=== PATIENT | female | born 1945 | race Caucasian/White ===

== ENCOUNTER 2021-08-17 23:03 | Emergency (ER) | payer MEDICARE ==
[2021-08-17] MEDS ORDERED: ONDANSETRON 4MG INJ ONE (23:12)
[2021-08-17 23:58] LABS: BASOPHILS % (AUTO) 0.2 % (0.0-5.0); EOSINOPHILS % (AUTO) 0.1 % (0.0-8.0); HEMATOCRIT 41.5 % (36-48); LYMPHOCYTES % (AUTO) 6.2 % (21.0-51.0); MEAN CORPUSCULAR HEMOGLOBIN 31.5 pg (27.0-33.0); MEAN CORPUSCULAR VOLUME 95.4 fL (79-99); MONOCYTES % (AUTO) 4.5 % (3.0-13.0); NEUTROPHILS % (AUTO) 88.6 % (40.0-77.0); PLATELET COUNT (AUTO) 275 K/uL (130-400); RED BLOOD CELL COUNT(AUTO) 4.35 MIL/uL (4.00-5.50); WHITE BLOOD COUNT (AUTO) 14.1 K/uL (4.8-10.8)
[2021-08-18] MEDS ORDERED: 0.9%NACL 1000ML 1,000 ML IV ONE
[2021-08-18] MEDS ORDERED: KETOROLAC 15MG/ML VIAL (15MG/ML) IV ONE
[2021-08-18] MEDS ORDERED: MORPHINE 4 MG SYG IVP ONE
[2021-08-18 00:03] LABS: CREATININE 1.2 mg/dL (0.5-1.5); POTASSIUM 4.2 mmol/L (3.5-5.1)
[2021-08-18 00:08] LABS: ALBUMIN 3.7 g/dL (3.5-5.0); BILIRUBIN,TOTAL 0.6 mg/dL (0.2-1.0)
[2021-08-18 01:05] VITALS: BP 122/56
[2021-08-18] MEDS ORDERED: ONDA4TAB10 PO (01:41)
[2021-08-18] MEDS ORDERED: HYOS0.124 SL (01:41)
== END 2021-08-18 02:07 | disposition home or self-care (01) ==
LOC: EDH 23:03
DX: K52.9 Noninfective gastroenteritis and colitis, unspecified (principal); E86.9 Volume depletion, unspecified; I10 Essential (primary) hypertension; Z79.1 Long term (current) use of non-steroidal anti-inflammatories (NSAID); Z88.8 Allergy status to other drugs, medicaments and biological substances
CPT/HCPCS: 36415; 74176; 80053; 83690; 84484; 85025; 93005; 96361; 96374; 96375; 99285; J1885; J2270; J2405; J7030

== ENCOUNTER 2021-08-22 20:35 | Observation (INO) | payer MEDICARE ==
[~2021-08-22] VITALS: Ht 160 cm; Wt 82.6 kg
[~2021-08-22 20:35] MED LIST: HYOS0.124 SL; ONDA4TAB10 PO
[2021-08-22] MEDS ORDERED: ONDANSETRON 4MG INJ ONE (21:13)
[2021-08-22 21:26] LABS: BASOPHILS % (AUTO) 0.4 % (0.0-5.0); EOSINOPHILS % (AUTO) 0.7 % (0.0-8.0); HEMATOCRIT 43.9 % (36-48); LYMPHOCYTES % (AUTO) 11.6 % (21.0-51.0); MEAN CORPUSCULAR HEMOGLOBIN 31.5 pg (27.0-33.0); MEAN CORPUSCULAR HGB CONC 33.5 g/dL (32.0-36.0); MEAN CORPUSCULAR VOLUME 94.2 fL (79-99); MONOCYTES % (AUTO) 5.7 % (3.0-13.0); NEUTROPHILS % (AUTO) 80.9 % (40.0-77.0); PLATELET COUNT (AUTO) 277 K/uL (130-400); RED BLOOD CELL COUNT(AUTO) 4.66 MIL/uL (4.00-5.50); RED CELL DISTRIBUTION WIDTH 13.9 % (11.0-15.5); WHITE BLOOD COUNT (AUTO) 10.1 K/uL (4.8-10.8)
[2021-08-22] MEDS ORDERED: 0.9%NACL 1000ML 1,000 ML IV ONE (21:30)
[2021-08-22] MEDS ORDERED: MORPHINE 4 MG SYG IVP ONE (21:30)
[2021-08-22 21:44] LABS: CREATININE 1.1 mg/dL (0.5-1.5); POTASSIUM 3.8 mmol/L (3.5-5.1)
[2021-08-22 21:51] LABS: ALBUMIN 3.9 g/dL (3.5-5.0); BILIRUBIN,TOTAL 0.7 mg/dL (0.2-1.0); TOTAL PROTEIN, SERUM 7.4 g/dL (6.0-8.3)
[2021-08-22 22:12] LABS: APPEARANCE,URINE CLOUDY (CLEAR); BILIRUBIN,URINE NEGATIVE (NEGATIVE); COLOR,URINE YELLOW (YELLOW); GLUCOSE, URINE (UA) NEGATIVE (NEGATIVE); KETONES,URINE >=80 mg/dL (NEGATIVE); LEUKOCYTE ESTERASE ,URINE MODERATE (NEGATIVE); NITRATE,URINE NEGATIVE (NEGATIVE); OCCULT BLOOD,URINE LARGE (NEGATIVE); PH,URINE 5.5 (5.0-8.0); PROTEIN,URINE TRACE mg/dL (NEGATIVE); UROBILINOGEN,URINE 0.2 mg/dL (0.2-1.0)
[2021-08-22 22:25] LABS: BACTERIA,URINE Many /HPF (None Seen); WBC,URINE 26-50 /HPF (0-1)
[2021-08-22] MEDS ORDERED: KETOROLAC 15MG/ML VIAL (15MG/ML) ONE (22:44)
[2021-08-22] MEDS ORDERED: HYDROMORPHONE 1 MG INJ IVP ONE (23:30)
[2021-08-23] MEDS ORDERED: CEFTRIAXONE 1G VIAL IVP ONE
[2021-08-23] MEDS ORDERED: CEFTRIAXONE 1G VIAL ONE (01:49)
[2021-08-23] MEDS ORDERED: LEVOFLOXACIN 500 MG/D5W 100 ML 100 ML ONE (01:50)
[2021-08-23] MEDS ORDERED: DEXTROSE 5 %-0.45 % NACL 1,000 ML IV SCH (09:00)
[2021-08-23 09:12] VITALS: BP 135/46
[2021-08-23] MEDS ORDERED: ASCO1TAB47 PO (11:29)
[2021-08-23] MEDS ORDERED: ALLO300T2 PO (11:29)
[2021-08-23] MEDS ORDERED: TELM80TA10 PO (11:29)
[2021-08-23] MEDS ORDERED: CYAN30003 SL (11:29)
[2021-08-23] MEDS ORDERED: VITAMIN D PO (11:29)
[2021-08-23] MEDS ORDERED: ASCO500T92 PO (11:29)
[2021-08-23] MEDS ORDERED: MV-M1TAB45 PO (11:29)
[2021-08-23] MEDS ORDERED: AMLO-257 PO (11:29)
[2021-08-23] MEDS ORDERED: LATA7.5D OP (11:29)
[2021-08-23] MEDS ORDERED: KRIL500C PO (11:29)
[2021-08-23] MEDS ORDERED: AEC81 PO (11:29)
== END 2021-08-23 16:38 | disposition home or self-care (01) ==
LOC: EDH 20:35 → EDHIP 08-23 00:43 → INTOOBSV 08-23 00:43 → EDHIP 08-23 16:50
PROVIDERS: ADMIT Internal Medicine; ATTEND Internal Medicine
DX: K52.9 Noninfective gastroenteritis and colitis, unspecified (principal); E86.0 Dehydration; E86.9 Volume depletion, unspecified; I10 Essential (primary) hypertension; Z90.710 Acquired absence of both cervix and uterus; Z90.49 Acquired absence of other specified parts of digestive tract; Z79.899 Other long term (current) drug therapy; Z98.890 Other specified postprocedural states
CPT/HCPCS: 36415 ×2; 74176; 80053; 81001; 82270; 83605 ×2; 83690; 84484; 85025; 87046; 87077; 87088; 87186; 87324; 93005; 96361; 96374; 96375 ×2; 99285; G0378 ×10; J0696; J1170; J1885; J1956; J2270; J2405; J7030; J7042

== ENCOUNTER 2021-08-24 00:21 | Observation (INO) | payer MEDICARE ==
[~2021-08-24] VITALS: Ht 160 cm; Wt 83.8 kg
[~2021-08-24 00:21] MED LIST changes: +AEC81 PO; +ALLO300T2 PO; +AMLO-257 PO; +ASCO1TAB47 PO; +ASCO500T92 PO; +CYAN30003 SL; -HYOS0.124 SL; +KRIL500C PO; +LATA7.5D OP; +MV-M1TAB45 PO; -ONDA4TAB10 PO; +TELM80TA10 PO; +VITAMIN D PO
[2021-08-24] MEDS ORDERED: LACTATED RINGERS 1000ML 1,000 ML IV ONE (01:00)
[2021-08-24] MEDS ORDERED: ONDANSETRON 4MG INJ IVP ONE (01:00)
[2021-08-24] MEDS ORDERED: PANTOPRAZOLE 40 MG/VIAL IVP ONE (01:00)
[2021-08-24] MEDS ORDERED: MORPHINE 2 MG SYG IVP ONE (01:00)
[2021-08-24 01:12] LABS: BASOPHILS % (AUTO) 0.2 % (0.0-5.0); EOSINOPHILS % (AUTO) 0.8 % (0.0-8.0); HEMATOCRIT 39.4 % (36-48); LYMPHOCYTES % (AUTO) 10.5 % (21.0-51.0); MEAN CORPUSCULAR HEMOGLOBIN 31.5 pg (27.0-33.0); MEAN CORPUSCULAR VOLUME 95.4 fL (79-99); MONOCYTES % (AUTO) 7.8 % (3.0-13.0); NEUTROPHILS % (AUTO) 79.9 % (40.0-77.0); PLATELET COUNT (AUTO) 259 K/uL (130-400); RED BLOOD CELL COUNT(AUTO) 4.13 MIL/uL (4.00-5.50); RED CELL DISTRIBUTION WIDTH 14.2 % (11.0-15.5)
[2021-08-24 01:20] LABS: CREATININE 0.9 mg/dL (0.5-1.5); POTASSIUM 3.9 mmol/L (3.5-5.1)
[2021-08-24 01:24] LABS: BILIRUBIN,TOTAL 0.6 mg/dL (0.2-1.0); TOTAL PROTEIN, SERUM 5.9 g/dL (6.0-8.3)
[2021-08-24 03:29] LABS: APPEARANCE,URINE Clear (CLEAR); BILIRUBIN,URINE Negative (NEGATIVE); COLOR,URINE Yellow (YELLOW); GLUCOSE, URINE (UA) Negative (NEGATIVE); KETONES,URINE 15 mg/dL (NEGATIVE); LEUKOCYTE ESTERASE ,URINE Moderate (NEGATIVE); NITRATE,URINE Negative (NEGATIVE); OCCULT BLOOD,URINE Negative (NEGATIVE); PH,URINE 5.5 (5.0-8.0); PROTEIN,URINE Negative (NEGATIVE); UROBILINOGEN,URINE 0.2 mg/dL (0.2-1.0)
[2021-08-24 03:41] LABS: BACTERIA,URINE Few /HPF (None Seen); RBC,URINE 0-1 /HPF (0-1)
[2021-08-24] MEDS ORDERED: HYDROMORPHONE 0.5 MG SYG (0.5MG/0.5ML) IVP PRN (04:00)
[2021-08-24] MEDS ORDERED: ONDANSETRON 4MG INJ IVP PRN (04:00)
[2021-08-24] MEDS: DEXTROSE 5 %-0.45 % NACL 1,000 ML IV SCH (05:20)
[2021-08-24 07:39] LABS: BASOPHILS % (AUTO) 0.4 % (0.0-5.0); EOSINOPHILS % (AUTO) 3.4 % (0.0-8.0); HEMATOCRIT 38.8 % (36-48); LYMPHOCYTES % (AUTO) 31.8 % (21.0-51.0); MEAN CORPUSCULAR HEMOGLOBIN 30.5 pg (27.0-33.0); MEAN CORPUSCULAR HGB CONC 31.7 g/dL (32.0-36.0); MEAN CORPUSCULAR VOLUME 96.3 fL (79-99); MONOCYTES % (AUTO) 9.6 % (3.0-13.0); PLATELET COUNT (AUTO) 262 K/uL (130-400); RED BLOOD CELL COUNT(AUTO) 4.03 MIL/uL (4.00-5.50); RED CELL DISTRIBUTION WIDTH 14.2 % (11.0-15.5); WHITE BLOOD COUNT (AUTO) 5.3 K/uL (4.8-10.8)
[2021-08-24 07:53] LABS: CREATININE 1.1 mg/dL (0.5-1.5)
[2021-08-24] MEDS: PANTOPRAZOLE 40 MG/VIAL IVP SCH (08:03)
[2021-08-24 13:15] VITALS: BP 140/48
[2021-08-24] MEDS: LOPERAMIDE HCL 2 MG CAP PO SCH ×2 (14:30→20:28)
[2021-08-24 16:00] VITALS: BP 140/55
[2021-08-24 20:00] VITALS: BP 140/44
[2021-08-24] MEDS ORDERED: DEXTROSE 5 %-0.45 % NACL 1,000 ML IV SCH (22:30)
[2021-08-25] VITALS (19 sets, daily range): BP systolic 117–160; BP diastolic 46–66
[2021-08-25] MEDS: DEXTROSE 5 %-0.45 % NACL 1,000 ML IV SCH ×4 (04:00→20:00)
[2021-08-25] MEDS: PANTOPRAZOLE 40 MG/VIAL IVP SCH (08:39)
[2021-08-25] MEDS: LOPERAMIDE HCL 2 MG CAP PO SCH ×2 (09:00→21:00)
[2021-08-25] MEDS ORDERED: PROPOFOL 10 MG/ML 20ML VIAL IV ONE (12:22)
[2021-08-25] MEDS ORDERED: GLYCOPYRROLATE 1 MG/5 ML SYRINGE ONE (12:25)
[2021-08-26 00:37] VITALS: BP 143/57
[2021-08-26] MEDS: DEXTROSE 5 %-0.45 % NACL 1,000 ML IV SCH (02:40)
[2021-08-26 04:30] VITALS: BP 143/49
[2021-08-26 08:00] VITALS: BP 147/65
[2021-08-26] MEDS: PANTOPRAZOLE 40 MG/VIAL IVP SCH (08:46)
[2021-08-26 08:50] VITALS: BP 147/65
[2021-08-26] MEDS: LOPERAMIDE HCL 2 MG CAP PO SCH (09:00)
== END 2021-08-26 10:15 | disposition home or self-care (01) ==
LOC: EDH 00:21 → EDHIP 03:08 → 3DH 13:40
PROVIDERS: ADMIT Internal Medicine; ATTEND Internal Medicine
DX: K52.9 Noninfective gastroenteritis and colitis, unspecified (principal); K85.90 Acute pancreatitis without necrosis or infection, unspecified; I10 Essential (primary) hypertension; K29.70 Gastritis, unspecified, without bleeding; R79.89 Other specified abnormal findings of blood chemistry; Z88.2 Allergy status to sulfonamides; Z90.49 Acquired absence of other specified parts of digestive tract; Z90.710 Acquired absence of both cervix and uterus; Z79.899 Other long term (current) drug therapy; Z98.890 Other specified postprocedural states; Z79.82 Long term (current) use of aspirin
CPT/HCPCS: 36415; 43239; 76700; 80053; 81001; 83690; 84484; 85025 ×2; 87507; 93005; 96361 ×2; 96374; 96375; 96376 ×2; 99285; A4215; A4222; A4223; A4606; A4620; C9113 ×3; G0378 ×53; J2405; J2704; J3490; J7030; J7042 ×3; J7120; 80048

== ENCOUNTER → 2022-03-20 | Outpatient (CLI) | payer MEDICARE | END | disposition home or self-care (01) | LOC: RAH 13:04 | PROVIDERS: ATTEND Internal Medicine | DX: R29.898 Other symptoms and signs involving the musculoskeletal system (principal); M47.26 Other spondylosis with radiculopathy, lumbar region | CPT/HCPCS: 72148 ==

== ENCOUNTER → 2022-09-11 | Outpatient (CLI) | payer MEDICARE ==
[~2022-09-11] MED LIST changes: -ALLO300T2 PO
== END | disposition home or self-care (01) ==
LOC: RAH 07:18
PROVIDERS: ATTEND Internal Medicine Gastroenterology
DX: R14.0 Abdominal distension (gaseous) (principal); R11.2 Nausea with vomiting, unspecified; R10.9 Unspecified abdominal pain
CPT/HCPCS: 78264; A9541